=== PATIENT | male | born 1975 | race Caucasian/White ===

== ENCOUNTER 2016-11-27 18:24 | Inpatient (IN) | payer OTHER ==
--- NOTE | ~2016-11-27 | CN ---
Consultation Report [facility] [address] [place]. [address] NAME: DANYEL HERNADEZ : 71 STATUS : ADM IN PAT#: [id number] AGE: 41 ADM/REG DATE : 11/27/16 MR#: [id number] REPORT SERV DATE: 12/03/16 DICTATED BY: MARY MOORE DATE: 12/03/16 REPORT STATUS : Draft TRANSCRIBED BY: MODL DATE: 12/03/16 CONSULT NOTE DATE OF CONSULTATION: 12/03/2016 REASON FOR CONSULTATION: Acute hypoxic respiratory failure. HISTORY OF PRESENT ILLNESS: The patient is a 41-year-old gentleman with a past medical history of tobacco abuse, uncontrolled hypertension as well as hyperlipidemia, who initially presented to the hospital back on the 27 of November with 2 weeks of intermittent chest pain. He had an abnormal stress test at that time and underwent coronary angiography by Dr. Quintero which showed multivessel coronary disease with 75% stenosis to the left main, 75% stenosis to the proximal RCA, and 50% stenosis to the mid RCA. Ejection fraction at that time was about 55%. The valves were normal. The patient then underwent coronary artery bypass grafting x3 on December 01, 2016, by Dr. Gomes. He was extubated postoperatively and surgery was uncomplicated. Since extubation, the patient has had increasing oxygen requirements this morning, his hypoxia progressed to the point where he is now requiring 100% Vapotherm at 40 L high flow to maintain saturations in the high 80s to low 90s. We are consulted for assistance and management of his hypoxic respiratory failure. In talking with the patient, he does have a significant tobacco use history. He has smoked about 30+ pack years. He says he has never been formally diagnosed with COPD though he does state that he uses home inhalers. He denies any history of sleep apnea. The patient is coughing but unable to produce any sputum. No real significant fevers since the surgery. The patient does endorse some shortness of breath. He denies any significant chest pain. PAST MEDICAL HISTORY: 1. Hypertension. 2. Hyperlipidemia. 3. Tobacco abuse. HOME MEDICATIONS: See medication reconciliation form. ALLERGIES: INCLUDE PENICILLIN, OXYCODONE, AND CLINDAMYCIN. SOCIAL HISTORY: 30+ pack-year history of smoking. Occasional marijuana use. Socially alcohol use. No IV drug abuse. FAMILY HISTORY: Reviewed and positive for coronary disease in his mother. REVIEW OF SYSTEMS: A 10-point review of systems negative except as mentioned in the HPI. PHYSICAL EXAMINATION: VITAL SIGNS: Temperature 99.9, heart rate 107, respiratory rate 23, blood pressure 131/82, Consultation Report [facility] [address] [place]. [address] NAME: DANYEL HERNADEZ : 71 STATUS : ADM IN PAT#: [id number] AGE: 41 ADM/REG DATE : 11/27/16 MR#: [id number] REPORT SERV DATE: 12/03/16 DICTATED BY: MARY MOORE DATE: 12/03/16 REPORT STATUS : Draft TRANSCRIBED BY: MODL DATE: 12/03/16 and saturations 89% on 100% Vapotherm with 40 L/minute flow. GENERAL: No acute distress. HEENT: Pupils equal, round, and reactive to light. Extraocular movements intact. Oropharynx clear. Moist mucous membranes. NECK: Supple. Nontender. No lymphadenopathy. No thyromegaly. No jugular venous distention. LUNGS: Coarse breath sounds with decreased breath sounds bilaterally. CARDIOVASCULAR: Tachycardic. No murmurs, rubs, or gallops. ABDOMEN: Soft, nontender, nondistended. Positive bowel sounds. No hepatosplenomegaly. EXTREMITIES: No cyanosis, clubbing, or edema. NEUROLOGIC: Alert and oriented x3. Cranial nerves intact. PSYCHIATRIC: Mood appropriate. LABS AND IMAGING: Blood gas with a pH of 7.44, pCO2 of 37, and PO2 of 60 on 100% FiO2. Metabolic profile remarkable for sodium of 134, BUN of 27, and creatinine of 1.1. CBC with a white count 18,000 with 77% neutrophils, 13% lymphocytes. Chest x-ray shows low lung volumes with bibasilar atelectasis, left greater than right. ASSESSMENT AND PLAN: The patient is a 41-year-old gentleman with a past medical history of tobacco abuse, hyperlipidemia, and hypertension who is now postop day #2 from coronary artery bypass grafting x3, now with acute postoperative hypoxic respiratory failure. In reviewing his labs and imaging and examining him, I feel like most likely his hypoxic respiratory failure is secondary to postoperative atelectasis with severe shunting. Currently the patient is requiring 100% Vapotherm with 40 L flow just to maintain saturations in the high 80s to low 90s. For now, we will continue with aggressive pulmonary toilet including incentive spirometry, EzPAP, good pain control, and ambulating the patient as much as tolerated. The patient has agreed to continue to work with respiratory therapy in these efforts. If these efforts are not successful, then we would likely progress to BiPAP next to assist with his atelectasis and would have a very low threshold to go ahead and intubate the patient. Place him back on mechanical ventilation. Given history of tobacco use, we will also place him on bronchodilator protocol. He denies a formal history of COPD though I suspect he does have a component of this. The patient's respiratory status is very tenuous and has a high likelihood of sudden clinically significant or life- threatening deterioration in his condition. We will continue to follow the patient closely with you. Please call with questions. I appreciate the consult. Total critical care time spent on this patient was 40 minutes. LITA/AHMET Mary Moore MD / [id number] Consultation Report [address] [address] NAME: DANYEL HERNADEZ : 71 STATUS : ADM IN [facility]#: [id number] AGE: 41 ADM/REG DATE : 11/27/16 MR#: [id number] REPORT SERV DATE: 12/03/16 DICTATED BY: MARY MOORE DATE: 12/03/16 REPORT STATUS : Draft TRANSCRIBED BY: AHMET DATE: 12/03/16 CC: Louis Quintero M.D.
--- NOTE | ~2016-11-27 | HP ---
History And Physical [place] [id number] [facility] [place]. [address] NAME: DANYEL HERNADEZ : 71 STATUS : ADM IN PAT#: [id number] AGE: 41 ADM/REG DATE : 11/27/16 MR#: [id number] REPORT SERV DATE: 11/28/16 DICTATED BY: JING QUINTERO DATE: 11/28/16 REPORT STATUS : Draft TRANSCRIBED BY: MODPaul DATE: 11/28/16 DATE OF ADMISSION: 11/27/2016 CHIEF COMPLAINT: Chest pain. HISTORY OF PRESENT ILLNESS: The patient is a 41-year-old male with reported history of poorly controlled hypertension, who presented to the emergency department at the [facility] with complaints of two weeks of intermittent chest discomfort. Reportedly, he had a recent nuclear perfusion stress test which was abnormal and was instructed to report to the emergency department for any recurrent pain. On the day of admission, developed recurrent chest pain. He came to the emergency department for evaluation. By the time of arrival in the emergency department, the patient was pain-free. The patient describes pressure-like sensation in the central chest with radiation to the left arm, exacerbated with exertion, and relieved with rest. No prolonged chest pain symptoms. FAMILY HISTORY: Mother with myocardial infarction at age 30 with multiple stents since that time. Mother remains alive and well. SOCIAL HISTORY: Tobacco user for the last 30 years smoking on an average one pack of cigarettes per day. Reports social alcohol use. Reports occasional listed drug use with marijuana. ALLERGIES: 1. ALTHOUGH, THE PATIENT REPORTS AN ALLERGY TO PENICILLIN. HE REPORTS THAT THIS OCCURRED IN CHILDHOOD. HE REPORTS THAT SINCE THAT TIME HE HAS TAKEN AMOXICILLIN MULTIPLE TIMES WITHOUT SIDE EFFECTS OR ALLERGIC REACTION. 2. OXYCODONE WITH NAUSEA AND RASH. 3. CLINDAMYCIN WITH RASH. HOME MEDICATIONS: 1. Gemfibrozil 600 mg b.i.d. the patient has been intolerant to the same. 2. Ibuprofen 800 mg p.o. p.r.n. musculoskeletal pain. 3. Losartan/hydrochlorothiazide 50/12.5 mg p.o. b.i.d. 4. Multivitamin with minerals. 5. Naprosyn p.r.n. REVIEW OF SYSTEMS: Review of systems negative for all organ systems except per the history of present illness. PHYSICAL EXAMINATION: VITAL SIGNS: Blood pressure 157/91, pulse ranging from 68 to 81, respirations 12 and unlabored, and saturating 98% on room air. Weight 110 pounds. GENERAL: This is an obese middle-aged male, in no acute distress. HEENT: Normal. NECK: Supple, no JVD or bruit, normal carotid upstroke bilaterally, no thyromegaly. LUNGS: Clear to auscultation and percussion. No wheezes, rales or rhonchi. No use of History And Physical [address] [address] NAME: DANYEL HERNADEZ : 71 STATUS : ADM IN [facility]#: [id number] AGE: 41 ADM/REG DATE : 11/27/16 MR#: [id number] REPORT SERV DATE: 11/28/16 DICTATED BY: JING QUINTERO DATE: 11/28/16 REPORT STATUS : Draft TRANSCRIBED BY: AHMET DATE: 11/28/16 accessory muscles. CARDIOLOGY: Regular rhythm, normal S1, S2, no thrill, no murmur, rubs or gallops, normal PMI. ABDOMEN: Obese. Bowel sounds positive, soft, nontender. No masses or aortic bruits. No hepatosplenomegaly or hepatojugular reflux. EXTREMITIES: No edema. Normal pulses. No clubbing or cyanosis. SKIN: Warm and dry, no significant rash. NEUROLOGIC: Alert and oriented x 3. Appropriate mood. LABORATORY DATA: WBC is 7.7, hemoglobin 15.5, hematocrit 44.9, and platelets 131,000. Sodium 143, potassium 3.4 - repleted since admission, chloride 102, CO2 29, BUN 16, creatinine 0.96, and glucose 170. DIAGNOSTIC DATA: Portable chest x-ray unremarkable. EKG: Sinus rhythm and normal EKG. Nuclear perfusion stress test 11/25/2016: Evidence of inferior infarction with mild inferoapical sandy-infarct ischemia. Ejection fraction 55% on gated images. Intermediate risk stress test. IMPRESSION AND PLAN: Unstable angina-admitted with intravenous heparin and nitroglycerin paste. We will add low-dose beta-alta as well as aspirin. Given abnormal nuclear perfusion stress test and the patient's presentation, we have recommended cardiac catheterization with intervention as indicated. The risks, benefits, and alternatives have been discussed with the patient. The patient's questions have been answered. The potential complications including but not limited to, , stroke, myocardial infarction, renal failure, life-threatening allergic reaction, life-threatening arrhythmia, and vascular cardiac injury requiring emergent surgery have been discussed with the patient. The patient's questions have been answered. The patient voices understanding of potential risks and desires to proceed. Schedule the patient for the same on Wednesday. CSL/MODL Louis Quintero M.D. / [id number] CC: Louis Quintero M.D. UNKNOWN
--- NOTE | ~2016-11-27 | OP ---
Record Of Operation [place] [address] [facility] [place]. [address] NAME: KARRI OCAMPO : 71 STATUS : ADM IN PAT#: [id number] AGE: 41 ADM/REG DATE : 11/27/16 MR#: [id number] REPORT SERV DATE: 12/01/16 DICTATED BY: ESTEBAN OMALLEY DATE: 12/01/16 REPORT STATUS : Draft TRANSCRIBED BY: MODL DATE: 12/01/16 DATE OF PROCEDURE: 12/01/2016 OCEAN RESCUE LIEUTENANT: Jenna Alexis. ANESTHESIOLOGIST: Karri Best MD PREOPERATIVE DIAGNOSES: 1. Unstable angina. 2. Three-vessel coronary artery disease. 3. Hypertension. 4. Hyperlipidemia. 5. Tobacco abuse. 6. Morbid obesity. POSTOPERATIVE DIAGNOSES: 1. Unstable angina. 2. Three-vessel coronary artery disease. 3. Hypertension. 4. Hyperlipidemia. 5. Tobacco abuse. 6. Morbid obesity. OPERATION/PROCEDURE PERFORMED: 1. Median sternotomy. 2. Extracorporeal circulation. 3. Urgent coronary artery bypass grafting x3, left internal mammary artery and left anterior descending, reverse greater saphenous vein graft to obtuse marginal #1, reverse greater saphenous vein graft to distal right coronary artery. 4. ARTIE. 5. Endoscopic vein harvest of the right leg. 6. Rigid external fixation of the sternum with SternaLock Monster system. 7. Prevena dressing placement. COMPLICATIONS: None. TUBES AND DRAINS: A 24-Gabonese Timothy to the left pleural space, a 32-Gabonese anterior mediastinal chest tube, atrial and ventricular pacing wires were placed. POSTOPERATIVE CONDITION: To CVICU in critical, stable condition. The patient was weaned from cardiopulmonary bypass with no inotropic support. Total cross-clamp time was 58 minutes. Total cardiopulmonary bypass time was 84 minutes. INTRAOPERATIVE FINDINGS: The vein was 3 to 4 mm, normal thickness, good quality vein, a little on the small side. Left internal mammary artery was 2.5 mm. There were diffusely diseased targets. Transesophageal echo showed no MR, no AI, no with normal EF. Record Of Operation [place] [id number] [facility] [place]. [address] NAME: KARRI OCAMPO : 71 STATUS : ADM IN PAT#: [id number] AGE: 41 ADM/REG DATE : 11/27/16 MR#: [id number] REPORT SERV DATE: 12/01/16 DICTATED BY: ESTEBAN OMALLEY DATE: 12/01/16 REPORT STATUS : Draft TRANSCRIBED BY: AHMET DATE: 12/01/16 Postoperatively, there was preserved wall motion. DETAILS OF CARDIOPULMONARY BYPASS GRAFTIN. Graft #1, left internal mammary to left anterior descending, this is a 1.75 mm diffusely diseased target. 2. Graft #2, reverse greater saphenous vein graft to obtuse marginal #1, this was a 1.75 mm target with diffuse disease. 3. Reverse greater saphenous vein graft to distal RCA, this was a 2 mm target, this was a diffusely diseased thickened artery. Excellent Doppler signals, both pre and post protamine for all three grafts. DETAILS OF STERNAL PLATING: The [employer] Monster system was used. The sternum was sized to 14 mm screws. Two X plates were placed on the body of the sternum between the sternal wires and one 100-degree plate was placed on the manubrium. Total of 20 screws were used. INDICATIONS FOR PROCEDURE: Mr. Ocampo is a 41-year-old gentleman with a two-week history of rapidly progressive angina who was admitted and underwent coronary catheterization given his comorbidities of morbid obesity, tobacco abuse, hypertension, hyperlipidemia, and strong early coronary history on his maternal side. Coronary catheterization revealed normal LV function, no MR, no AI, no , and 75% left main with 75% distal RCA. Risks, benefits, and alternatives were discussed including but not limited to, bleeding, infection, stroke, , heart attack, need for future operations. All questions were answered. STS risks were discussed with the patient. STS mortality of 2.3% and morbidity mortality of 5% were discussed with the patient. All questions were answered. DESCRIPTION OF PROCEDURE: The patient was brought to the operating room and placed supine on the operating room table. After satisfactory induction of general endotracheal anesthesia, he was prepped and draped in the usual sterile fashion. Working simultaneously, endoscopic vein harvest was performed from the right leg while a median sternotomy was performed. Skin and subcutaneous tissues were divided. Clavipectoral fascia was divided. The sternum was divided in the midline. Sternal retractor was placed. Thymic tissue was divided in the midline. The pericardium was divided in the midline. The targets were inspected. Targets were felt to be appropriate for bypass. The Rultract retractor was placed. The internal mammary artery on the left side was harvested in a pedicle fashion from its takeoff under the subclavian vein at the bifurcation of the diaphragm. Systemic heparinization was achieved. After three minutes, the pedicle was clipped and divided at the bifurcation. Hemostasis was obtained. A 24-Gabonese Timothy was placed in the left pleural space and exteriorized. The Rultract retractor was removed. The sternal retractor was placed. The pericardial well was created. Ascending aorta was cannulated high on the ascending aorta at the base of the innominate artery. Dual stage venous cannula was placed. Antegrade root vent cardioplegia tack was placed. The conduit was inspected and prepared for bypass. The internal mammary artery was brought through a wide V in the pericardium and prepared for bypass. Cardiopulmonary bypass was initiated. After documentation of an adequate ACT, the targets were again inspected. The cross-clamp was brought up. The heart was arrested with cold antegrade cardioplegia switching to intermittent aliquots of cold antegrade cardioplegia for 15 to 20 minutes throughout the remainder of the cross clamp. The two distal vein grafts were performed. The distal RCA was deep in the epicardial fat in the AV Record Of Operation [address] [place]. [address] NAME: KARRI OCAMPO : 71 STATUS : [facility]M [facility]#: [id number] AGE: 41 ADM/REG DATE : 11/27/16 MR#: [id number] REPORT SERV DATE: 12/01/16 DICTATED BY: ESTEBAN OMALLEY DATE: 12/01/16 REPORT STATUS : Draft TRANSCRIBED BY: AHMET DATE: 12/01/16 groove, this was dissected out. An anterior arteriotomy was performed, enlarged with a coronary scissors and a running continuous anastomosis was performed between reverse greater saphenous vein graft to the distal RCA using 8-0 Surgipro. Attention was then turned to the obtuse marginal #1, this was a 1.75 mm target and was opened anteriorly and a running continuous anastomosis was performed between this and a reverse greater saphenous vein. The veins were reversed, measured, cut to length and spatulated. The ascending aorta had two aortotomies performed, enlarged with 4.5 mm punch, and running continuous anastomoses were performed using 6-0 Prolene. Vein markers were placed. Attention was turned to the LAD. The MORA was brought down through a wide V in the pericardium. The LAD was opened on its anterior surface. There was posterior plaquing apparently throughout the artery. I opened it and what appeared to be a nondisease soft spot from the anterior portion. Arteriotomy was enlarged. The graft was cut to length, spatulated, and a running continuous anastomosis was performed using 8-0 Surgipro. The bulldog was removed. There was excellent flow in the graft and distal and proximal to the anastomosis. The pedicle was attached to the epicardium in two places using 6-0 Prolene and the graft. Vein grafts were de-aired and the cross-clamp was removed. The patient returned to normal sinus rhythm and was able to be weaned from cardiopulmonary bypass without incident. Protamine was administered. The patient was decannulated. All cannulation sites were oversewn with 4-0 Prolene. Hemostasis was obtained. The pericardium was loosely reapproximated over the ascending aorta and the right ventricle. A 32-Gabonese chest tube was placed beneath the sternum. The sternum was then reapproximated using stainless steel sternal wires. After closing the sternum, the SternaLock Monster system was used. Fascial flaps were raised to the edge of the sternum. The sternum was then sized to 14 mm screws. Two X plates were placed on the body of the sternum between the sternal wires and one 100-degree plate was placed on the body of the manubrium. The clavipectoral fascia was then closed over the sternum using running #1 Stratafix, subcutaneous tissues closed using running #1 Stratafix, the skin closed with 2-0 Quill, Prevena dressing was placed. The patient was transferred to CVICU in critical, stable condition. WMC/MODL Esteban Omalley MD / [id number] CC: Esteban Omalley MD
--- NOTE | ~2016-11-27 | CN ---
Consultation Report [facility] [address] [place]. [address] NAME: DANYEL OCAMPO : 71 STATUS : ADM IN PAT#: [id number] AGE: 41 ADM/REG DATE : 11/27/16 MR#: [id number] REPORT SERV DATE: 12/01/16 DICTATED BY: CARIDAD DIMAS DATE: 12/01/16 REPORT STATUS : Draft TRANSCRIBED BY: MODL DATE: 12/01/16 CONSULTATION DATE OF CONSULTATION: 12/01/2016 REASON FOR CONSULTATION: Multivessel coronary artery disease. HISTORY OF PRESENT ILLNESS: This is a pleasant 41-year-old, male with a history of poorly controlled high blood pressure and hyperlipidemia as well as tobacco abuse. He presented to the emergency room at [facility] on 11/27/2016 with two weeks of chest pain, abnormal stress test. In the emergency room, his chest pain did resolve without any intervention and his cardiac workup including enzymes and EKG were negative. The patient was transferred to [facility] as his chest pain continued to persist with activity. He underwent arteriogram yesterday and was found to have multivessel coronary artery disease including a 75% stenosis to his left main coronary artery and 75% stenosis to the proximal RCA with 50% stenosis to the mid RCA. There was no mention of valvular abnormalities and transthoracic echo on 11/30/2016 showed an ejection fraction of around 55%. Currently, the patient is resting with no complaints of chest pain or shortness of breath. His girlfriend is with him at the bedside. He is a little anxious regarding the recent news, but otherwise his exam is negative. PAST MEDICAL HISTORY: Poorly controlled high blood pressure and hyperlipidemia. FAMILY HISTORY: He has a history of coronary artery disease on his maternal side. PAST SURGICAL HISTORY: No major surgeries in the past. SOCIAL HISTORY: One [id number] smoker x30 years. Occasional use of marijuana. He socially drinks alcohol. 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 He is single, but has a girlfriend. ALLERGIES: HE REPORTS A PRIOR ALLERGY A CHILD TO PENICILLIN, BUT SAYS THAT HE HAS TAKEN AMOXICILLIN SEVERAL TIMES WITHOUT ANY ALLERGIC REACTION. ALSO ALLERGIC TO OXYCODONE AND CLINDAMYCIN. HOME MEDICATIONS: Gemfibrozil 600 mg p.o. b.i.d., ibuprofen 800 mg p.r.n., losartan/hydrochlorothiazide 50/12.5 mg p.o. b.i.d., multivitamin daily, and Naprosyn as needed. REVIEW OF SYSTEMS: A 10-point review of systems was obtained and is negative other than HPI. PHYSICAL EXAMINATION: VITAL SIGNS: From today, temperature 97.5, heart rate 67, blood pressure 145/85, Consultation Report [address] [place]. [address] NAME: DANYEL OCAMPO : 71 STATUS : ADM IN PAT#: [id number] AGE: 41 ADM/REG DATE : 11/27/16 MR#: [id number] REPORT SERV DATE: 12/01/16 DICTATED BY: CARIDAD DIMAS DATE: 12/01/16 REPORT STATUS : Draft TRANSCRIBED BY: AHMET DATE: 12/01/16 respiratory rate 16, and O2 saturation 97% on room air. GENERAL: Pleasant, overweight, male. He has several tattoos, in no acute distress. PSYCH: Anxious but talkative and pleasant. NEUROLOGIC: Alert and oriented x3. Pupils are equal, round, reactive to light and accommodation. He exhibits equal strength in bilateral upper extremities and bilateral lower extremities. HEENT: Head is normocephalic and atraumatic. Sclerae clear. Nose midline with no abnormalities. Ears with no abnormalities. Dentition several missing teeth with poor dentition overall. NECK: Supple with no thyromegaly or lymphadenopathy. LUNGS: Clear to auscultation bilaterally with normal effort. CARDIAC: S1, S2 with no murmurs, rubs, or gallops. ABDOMEN: Soft, obese, and nontender with active bowel sounds. EXTREMITIES: Free of cyanosis, clubbing, or edema. White blood cell count 14.9, hemoglobin 17.1, hematocrit 47.1, platelets 260. Sodium 141, potassium 4.3, chloride 102, bicarbonate 26, BUN 19, creatinine 0.9. Glucose 115. ASSESSMENT AND PLAN: This is a 41-year-old, male, who has had a history of unstable angina for over two weeks now. This seems to be worse with any exertion. His cardiac workup was negative, but he was taken for arteriogram yesterday and found to have a 75% stenosis to his left main coronary artery and 75% proximal RCA stenosis with normal left ventricular ejection fraction as mentioned above. The patient needs 2 to 3-vessel coronary artery bypass grafting. I have discussed the risks and benefits of surgery as well as his STS risk score, his STS risk stratification for him and his particular surgery include an overall mortality of 0.3% and morbidity mortality of 5%. I have discussed these findings in relation to his need for surgery and expectations for recovery and the patient is willing to proceed. He says that he would like to proceed as soon as possible. We could arrange this afternoon. I spoke with Dr. Gomes regarding the patient and reviewed images. We will plan for surgery around noon today. We would like to thank you for the consultation. Please let us know if we can be of any further assistance in helping you take care of Mr. Jimmy Ocampo. SRIDHAR/AHMET Caridad Dimas NP / [id number] CC: Consultation Report [address] [id number] NAME: DANYEL OCAMPO : 71 STATUS : ADM IN [facility]#: [id number] AGE: 41 ADM/REG DATE : 11/27/16 MR#: [id number] REPORT SERV DATE: 12/01/16 DICTATED BY: CARIDAD DIMAS DATE: 12/01/16 REPORT STATUS : Draft TRANSCRIBED BY: AHMET DATE: 12/01/16 Louis Quintero M.D.
--- NOTE | ~2016-11-27 | DS ---
Discharge Summary [facility] [address] [place]. [address] NAME: DANYEL HERNADEZ : 71 STATUS : DIS IN PAT#: [id number] AGE: 41 ADM/REG DATE : 11/27/16 MR#: [id number] REPORT SERV DATE: 12/17/16 DICTATED BY: JING QUINTERO DATE: 12/16/16 REPORT STATUS : Draft TRANSCRIBED BY: AHMET DATE: 12/16/16 Data Collection from hospitalization DISCHARGE DIAGNOSES: 1. Unstable angina, status post coronary artery bypass grafting. 2. Hyperlipidemia. 3. Hypertension. 4. Tobacco use. 5. Dental abscesses. CONSULTATIONS: 1. Lionel Cruz NP. 2. Suman Moore MD. PROCEDURES: 1. Cardiac catheterization, 11/30/2016. 2. Median sternotomy; extracorporeal circulation; urgent coronary artery bypass grafting x3, left internal mammary artery and left anterior descending, reverse greater saphenous vein graft to obtuse marginal #1, reverse greater saphenous vein graft to distal right coronary artery; transesophageal echocardiogram; endoscopic vein harvest from the right leg; rigid external fixation of the sternum with SternaLock Monster system; Prevena dressing placement, 12/01/2016. 3. Vein mapping of the bilateral lower extremities, 12/01/2016. 4. Carotid blood flow study, 12/01/2016. DISCHARGE MEDICATIONS: Proventil two puffs via inhaler every four hours as needed, Cordarone 200 mg twice a day, Augmentin 500 mg every 8 hours, aspirin 81 mg daily, Lipitor as instructed, Lasix 40 mg daily, Prinivil 5 mg daily, Lopressor 50 mg twice a day, Centrum one tablet daily, Percocet 10/325 one tablet every four hours as needed, K-Dur 20 mEq daily, and prednisone 2.5 mg twice a day. CONDITION AT DISCHARGE: Stable. DISPOSITION: The patient was discharged home on an 1800-calorie cardiac/diabetic diet with activities as instructed. He would follow up with Lionel Cruz 12/29/[address] Louis Quintero 01/04/2017. He will follow up with Dr. Leigh Jay as instructed. He would follow up with his primary care physician 3-4 weeks following discharge and would follow up with cardiac rehab, 01/07/2017. HOSPITAL COURSE: This is a 41-year-old man who has poorly controlled hypertension, who presented to the emergency department at the [facility] complaining of a two- week history of intermittent chest tube discomfort. Reportedly, he had a recent nuclear perfusion stress test, which was abnormal and he was instructed to report to the emergency department for any recurrent pain. On the day of admission, he developed recurrent chest pain and came to the emergency department. By the time of his arrival, he was pain free. He described having pressure-like sensation in the central chest with radiation to the left arm, exacerbated with exertion and relieved with rest. He had no prolonged chest pain symptoms. He was admitted to the hospital at this time for further evaluation and Discharge Summary [address] [address] NAME: DANYEL HERNADEZ : 71 STATUS : DIS IN PAT#: [id number] AGE: 41 ADM/REG DATE : 11/27/16 MR#: [id number] REPORT SERV DATE: 12/17/16 DICTATED BY: JING QUINTERO DATE: 12/16/16 REPORT STATUS : Draft TRANSCRIBED BY: AHMET DATE: 12/16/16 treatment. Upon admission, intravenous heparin and nitroglycerin paste were provided, low-dose beta- alta as well as aspirin were added. Given the abnormal nuclear perfusion stress test and the patient's presentation, it was recommended that a cardiac catheterization with intervention be performed. The following day, he had no chest pain or dyspnea. He does have a dental infection, but no fevers or chills. He had no systemic symptoms. Augmentin was being given. On 11/30/2016, he had brief chest pain while walking in the halls the previous evening, he had none currently. His lungs were clear. Lipitor was increased. Fenofibrate was added. Hemoglobin A1c was going to be checked. White blood cell count was 14.9. The patient was taken to the cardiac lab instructor where he underwent the above-mentioned procedure by Dr. Kiet Felipe, he tolerated this well. There were no complications. On 12/01/2016, he was seen by Lionel Cruz regarding multivessel coronary artery disease. The arteriogram had revealed multivessel coronary artery disease including 75% stenosis to the left main coronary artery and 75% stenosis to the proximal RCA with 50% stenosis to the mid RCA. There was no mention of valvular abnormalities, and transthoracic echo on 11/30/2016 showed an ejection fraction around 55%. The patient was currently resting with no complaints, it was felt that he would need to undergo coronary artery bypass grafting. Vein mapping of the bilateral lower extremities was performed as well as a carotid blood flow study. The patient was taken to the operating room where he underwent the above-mentioned procedure by Dr. Esteban Gomes. He tolerated this well and there were no complications. On postop day #1, he complained of typical postop chest tube/incisional pain. He has no palpitations or shortness of breath. He was in a sinus rhythm. The patient was found to have nonobstructive left internal carotid artery stenosis - 50%-60%. On 12/03/2016, he still had some chest wall pain and dyspnea, he was on high-flow O2. He had decreased breath sounds in his bases and some rhonchi. The patient was seen by Dr. Suman Moore regarding acute hypoxic respiratory failure. He has been extubated postoperatively and his surgery had been uncomplicated. Since extubation, he had increasing oxygen requirements. His hypoxia had progressed to the point where he now required 100% Vapotherm at 40 L high-flow to maintain saturations in the high 80s to low 90s. The patient does have a significant tobacco use history. He has smoked about 30+ pack years. He said he had never been formally diagnosed with COPD, although he does state that he uses home inhalers. He denies any history of sleep apnea. He was coughing, but had no sputum production. It was felt that most likely his hypoxic respiratory failure was secondary to postoperative atelectasis with severe shunting. Aggressive pulmonary toilet would be continued including incentive spirometry, EasyPath, good pain control, and having the patient ambulate as much as tolerated. He agreed to continue working with respiratory therapy. If these efforts were not successful, then he would likely progress to BiPAP next to assist with his atelectasis, and we would have a very low threshold to go ahead and intubate the patient and place him back on mechanical ventilation. Given his history of tobacco use, we would also place him on bronchodilator protocol. The patient's respiratory status was very tenuous and he had a high likelihood of sudden clinically significant or life-threatening deterioration in his condition. The patient was felt to be at risk for atrial fibrillation/flutter, but at the current time, appeared to be in sinus tachycardia. Metoprolol was increased. His ECG revealed what appeared to be atrial flutter with 2:1 block with a rate of 150, IV amiodarone was started. Discharge Summary [facility] [address] [place]. [address] NAME: DANYEL HERNADEZ : 71 STATUS : DIS IN PAT#: [id number] AGE: 41 ADM/REG DATE : 11/27/16 MR#: [id number] REPORT SERV DATE: 12/17/16 DICTATED BY: JING QUINTERO DATE: 12/16/16 REPORT STATUS : Draft TRANSCRIBED BY: AHMET DATE: 12/16/16 On 12/05/2016, he denied any shortness of breath at rest. He was in a normal sinus rhythm, now on amiodarone. Diuresis was being performed. Steroids were being tapered. O2 was being tapered as tolerated. He was tolerating his diet. He was recovering slowly, blood pressure was controlled. The next day, his O2 requirement decreased overnight. He said he was feeling better, but was still sore, O2 was being tapered. We encouraged him to increase his activity. Steroids were being tapered. Discharge planning was performed. He continued to do well. On 12/07/2016, he was in a normal sinus rhythm. Oral Lasix continued. We were going to add lisinopril, his incisions looked okay. The patient was seen by Jaylene Darling. Chest x-ray showed improved aeration of the lungs. There was minimal bibasilar atelectasis. The patient was on oral steroid taper. Discharge instructions were given due to his improved and stable condition. He was discharged home with the above-stated instructions. Information collected by: Riri Ashby I submit the above information as my discharge summary. JADE/AHMET Louis Quintero M.D. / [id number] CC: Landon Alvarado NP Deborah B. Phong, [employer]
[~2016-11-27 18:24] MED LIST: ALEVE PM PO; CENTRUM PO; HYZAAR 50/12.51 TAB PO; IBU800 PO; LOPID6 PO
[2016-11-28 04:30] LABS: HEMATOCRIT 43.5 % (40.0-51.0); HEMOGLOBIN 15.6 g/dL (13.6-17.8); MANUAL DIFF YES %; MEAN CORPUS HGB CONC 35.9 g/dL (32.0-36.0); PLATELET COUNT 215 10/3/uL (150-400); RBC DISTRIBUTION WIDTH 12.7 % (12.0-16.0); RED CELL COUNT 4.73 10/6/uL (4.7-6.1); WHITE BLOOD CELLS 10.3 10/3/uL (4.5-10.5)
[2016-11-28 04:59] LABS: BAND NEUTROPHILS 2 %; EOSINOPHILS 1 %; LYMPHOCYTES 38 %; LYMPHOCYTES ABSOLUTE (CALC) 3.91 10/3/uL (0.67-4.30); MONOCYTES 2 %; MONOCYTES ABSOLUTE (CALC) 0.21 10/3/uL (0.21-1.20); NEUTROPHILS ABSOLUTE (CALC) 6.08 10/3/uL (2.02-8.40); PLATELET ESTIMATE ADQ (ADEQUATE); SEGMENTED NEUTROPHIL (0) 57 %; TOTAL NUCLEATED CELLS 100
[2016-11-28 05:00] LABS: RBC MORPHOLOGY NORM (NORMAL)
[2016-11-30 01:45] LABS: HEMATOCRIT 47.1 % (40.0-51.0); HEMOGLOBIN 17.1 g/dL (13.6-17.8); MEAN CORPUS HGB CONC 36.3 g/dL (32.0-36.0); MEAN CORPUSCULAR HEMOGLOB 32.6 pg (26.0-34.0); MEAN CORPUSCULAR VOLUME 89.7 fL (80-100); MEAN PLATELET VOLUME 10.1 fL (9.2-13.0); PLATELET COUNT 260 10/3/uL (150-400); RBC DISTRIBUTION WIDTH 12.7 % (12.0-16.0); RED CELL COUNT 5.25 10/6/uL (4.7-6.1)
[2016-11-30 01:46] LABS: MANUAL DIFF YES %; WHITE BLOOD CELLS 14.9 10/3/uL (4.5-10.5)
[2016-11-30 01:53] LABS: PROTIME (NOT ORD) 12.7 SEC (12.0-14.5)
[2016-11-30 01:54] LABS: PARTIAL THROMBO TIME 101.3 SEC (22.5-37.2)
[2016-11-30 02:03] LABS: BAND NEUTROPHILS 2 %; EOSINOPHILS 1 %; LYMPHOCYTES 34 %; LYMPHOCYTES ABSOLUTE (CALC) 5.07 10/3/uL (0.67-4.30); MONOCYTES 2 %; NEUTROPHILS ABSOLUTE (CALC) 9.39 10/3/uL (2.02-8.40); SEGMENTED NEUTROPHIL (0) 61 %; TOTAL NUCLEATED CELLS 100
[2016-11-30 02:04] LABS: EOSINOPHILS ABSOLUTE (CALC) 0.15 10/3/uL (0.0-0.53); PLATELET ESTIMATE ADQ (ADEQUATE); RBC MORPHOLOGY NORM (NORMAL)
[2016-11-30 02:06] LABS: BUN (BLOOD UREA NITROGEN) 19 MG/DL (6-23); CALCIUM, SERUM 9.3 MG/DL (8.5-10.4); CHLORIDE, SERUM 102 MMOL/L (96-112); CHOLESTEROL 292 MG/DL (< 200); CO2 (CARBON DIOXIDE) 26 MMOL/L (24-34); CREATININE 0.93 MG/DL (0.70-1.30); GFR AFRICAN AMERICAN 116 ML/MIN (>=60); GFR NON AFRICAN AMERICAN 100 ML/MIN (>=60); HDL CHOLESTEROL 25 MG/DL (> 39); NON-HDL CHOLESTEROL 267 MG/DL (< 160); SODIUM, SERUM 141 MMOL/L (135-148)
[2016-11-30 02:15] LABS: CHOL/HDL RATIO(NOT ORDER) 11.7 (0-5); GLUCOSE, SERUM 115 MG/DL (60-99); POTASSIUM, SERUM 4.3 MMOL/L (3.5-5.3); TRIGLYCERIDE 1208 MG/DL (< 150)
[2016-12-01 08:52] LABS: BASOPHILS 0.5 %; BASOPHILS ABSOLUTE 0.04 10/3/uL (0.0-0.16); EOSINOPHILS 3.3 %; EOSINOPHILS ABSOLUTE 0.27 10/3/uL (0.0-0.53); HEMATOCRIT 45.3 % (40.0-51.0); HEMOGLOBIN 15.9 g/dL (13.6-17.8); IMMATURE GRANULOCYTES 0.2 %; IMMATURE GRANULOCYTES ABSOLUTE 0.02 10/3/uL (0.0-0.11); LYMPHOCYTES 29.2 %; LYMPHOCYTES ABSOLUTE 2.39 10/3/uL (0.67-4.30); MEAN CORPUS HGB CONC 35.1 g/dL (32.0-36.0); MEAN CORPUSCULAR HEMOGLOB 32.1 pg (26.0-34.0); MEAN CORPUSCULAR VOLUME 91.3 fL (80-100); MEAN PLATELET VOLUME 9.8 fL (9.2-13.0); MONOCYTES 7.1 %; MONOCYTES ABSOLUTE 0.58 10/3/uL (0.21-1.20); NEUTROPHILS 59.7 %; NEUTROPHILS ABSOLUTE 4.88 10/3/uL (2.02-8.40); PLATELET COUNT 214 10/3/uL (150-400); RBC DISTRIBUTION WIDTH 12.6 % (12.0-16.0); RED CELL COUNT 4.96 10/6/uL (4.7-6.1)
[2016-12-01 08:53] LABS: MANUAL DIFF NO %; WHITE BLOOD CELLS 8.2 10/3/uL (4.5-10.5)
[2016-12-01 17:45] LABS: BE (BASE EXCESS) -3.8 MEQ/L (0 +/- 2.5); CARBOXYHEMOGLOBIN 0.1 % (0-3); HCO3 (ACTUAL BICARBONATE) 21.3 MEQ/L (23-27); HEMOBLOGIN CONTENT 13.6 G/DL (14-18); INSTRUMENT SERIAL # 11843; METHEMOGLOBIN 0.5 % (0-3); MODE SIMV; O2 CONTENT 18.9 VOL% (18-24); OPERATOR ID 18642; PCO2 (CO2 TENSION) 39 MMHG (35-45); PO2 (O2 TENSION) 140 MMHG (79-93); PRESSURE SUPPORT 0 cm.H2O; SAMPLE Arterial; TIDAL VOLUME 700 ML; pH 7.35 (7.37-7.43)
[2016-12-01 18:09] LABS: HEMOGLOBIN 12.8 g/dL (13.6-17.8); PLATELET COUNT 162 10/3/uL (150-400)
[2016-12-01 18:11] LABS: HEMATOCRIT 36.5 % (40.0-51.0)
[2016-12-01 18:16] LABS: BUN (BLOOD UREA NITROGEN) 16 MG/DL (6-23); CALCIUM, SERUM 9.4 MG/DL (8.5-10.4); CHLORIDE, SERUM 107 MMOL/L (96-112); CO2 (CARBON DIOXIDE) 26 MMOL/L (24-34); CREATININE 1.28 MG/DL (0.70-1.30); GFR AFRICAN AMERICAN 79 ML/MIN (>=60); GFR NON AFRICAN AMERICAN 68 ML/MIN (>=60); GLUCOSE, SERUM 107 MG/DL (60-99); POTASSIUM, SERUM 3.8 MMOL/L (3.5-5.3); SODIUM, SERUM 139 MMOL/L (135-148)
[2016-12-01 18:20] LABS: FIBRINOGEN 286 MG/DL (230-462); INTERNATIONAL NORMAL RATI 1.2 UNITS (-); PARTIAL THROMBO TIME 28.6 SEC (22.5-37.2)
[2016-12-01 18:22] LABS: PROTIME (NOT ORD) 14.8 SEC (12.0-14.5)
[2016-12-01 21:39] LABS: BE (BASE EXCESS) -2.4 MEQ/L (0 +/- 2.5); CARBOXYHEMOGLOBIN 0.2 % (0-3); DEVICE NC; HCO3 (ACTUAL BICARBONATE) 22.8 MEQ/L (23-27); HEMOBLOGIN CONTENT 14.3 G/DL (14-18); INSTRUMENT SERIAL # 11843; METHEMOGLOBIN 0.4 % (0-3); O2 CONTENT 19.2 VOL% (18-24); OPERATOR ID 13415; PCO2 (CO2 TENSION) 41 MMHG (35-45); PO2 (O2 TENSION) 86 MMHG (79-93); SAMPLE Arterial; pH 7.37 (7.37-7.43)
[2016-12-02 03:34] LABS: BASOPHILS 0.1 %; BASOPHILS ABSOLUTE 0.01 10/3/uL (0.0-0.16); EOSINOPHILS 0 %; HEMATOCRIT 36.9 % (40.0-51.0); HEMOGLOBIN 12.7 g/dL (13.6-17.8); IMMATURE GRANULOCYTES 0.3 %; IMMATURE GRANULOCYTES ABSOLUTE 0.06 10/3/uL (0.0-0.11); LYMPHOCYTES 5.9 %; LYMPHOCYTES ABSOLUTE 1.09 10/3/uL (0.67-4.30); MEAN CORPUS HGB CONC 34.4 g/dL (32.0-36.0); MEAN CORPUSCULAR HEMOGLOB 31.8 pg (26.0-34.0); MEAN CORPUSCULAR VOLUME 92.3 fL (80-100); MONOCYTES 4.6 %; MONOCYTES ABSOLUTE 0.85 10/3/uL (0.21-1.20); NEUTROPHILS 89.1 %; NEUTROPHILS ABSOLUTE 16.38 10/3/uL (2.02-8.40); PLATELET COUNT 179 10/3/uL (150-400); RBC DISTRIBUTION WIDTH 12.5 % (12.0-16.0)
[2016-12-02 03:35] LABS: MANUAL DIFF NO %; WHITE BLOOD CELLS 18.4 10/3/uL (4.5-10.5)
[2016-12-02 03:47] LABS: BUN (BLOOD UREA NITROGEN) 20 MG/DL (6-23); CALCIUM, SERUM 8.9 MG/DL (8.5-10.4); CHLORIDE, SERUM 107 MMOL/L (96-112); CO2 (CARBON DIOXIDE) 27 MMOL/L (24-34); CREATININE 0.89 MG/DL (0.70-1.30); GFR AFRICAN AMERICAN 121 ML/MIN (>=60); GFR NON AFRICAN AMERICAN 105 ML/MIN (>=60); GLUCOSE, SERUM 138 MG/DL (60-99); POTASSIUM, SERUM 4.4 MMOL/L (3.5-5.3); SODIUM, SERUM 140 MMOL/L (135-148)
[2016-12-02 17:34] LABS: HEMATOCRIT 39.1 % (40.0-51.0); HEMOGLOBIN 13.3 g/dL (13.6-17.8)
[2016-12-03 03:20] LABS: BASOPHILS 0.1 %; BASOPHILS ABSOLUTE 0.02 10/3/uL (0.0-0.16); EOSINOPHILS 0.1 %; EOSINOPHILS ABSOLUTE 0.01 10/3/uL (0.0-0.53); HEMOGLOBIN 11.6 g/dL (13.6-17.8); IMMATURE GRANULOCYTES 0.3 %; IMMATURE GRANULOCYTES ABSOLUTE 0.06 10/3/uL (0.0-0.11); LYMPHOCYTES ABSOLUTE 2.34 10/3/uL (0.67-4.30); MEAN CORPUS HGB CONC 34.6 g/dL (32.0-36.0); MEAN CORPUSCULAR HEMOGLOB 32.1 pg (26.0-34.0); MEAN CORPUSCULAR VOLUME 92.8 fL (80-100); MEAN PLATELET VOLUME 10.4 fL (9.2-13.0); MONOCYTES 8.8 %; MONOCYTES ABSOLUTE 1.59 10/3/uL (0.21-1.20); NEUTROPHILS 77.7 %; PLATELET COUNT 156 10/3/uL (150-400); RED CELL COUNT 3.61 10/6/uL (4.7-6.1)
[2016-12-03 03:21] LABS: HEMATOCRIT 33.5 % (40.0-51.0); MANUAL DIFF NO %
[2016-12-03 03:33] LABS: CALCIUM, SERUM 8.9 MG/DL (8.5-10.4); CHLORIDE, SERUM 99 MMOL/L (96-112); CO2 (CARBON DIOXIDE) 27 MMOL/L (24-34); GFR AFRICAN AMERICAN 95 ML/MIN (>=60); GFR NON AFRICAN AMERICAN 82 ML/MIN (>=60); GLUCOSE, SERUM 132 MG/DL (60-99); POTASSIUM, SERUM 4.1 MMOL/L (3.5-5.3); SODIUM, SERUM 134 MMOL/L (135-148)
[2016-12-03 03:36] LABS: BUN (BLOOD UREA NITROGEN) 27 MG/DL (6-23)
[2016-12-03 04:40] LABS: ALLENS TEST Pos; CARBOXYHEMOGLOBIN 0.3 % (0-3); HCO3 (ACTUAL BICARBONATE) 24.9 MEQ/L (23-27); HEMOBLOGIN CONTENT 12.5 G/DL (14-18); INSTRUMENT SERIAL # 11843; METHEMOGLOBIN 0.5 % (0-3); O2 CONTENT 15.8 VOL% (18-24); OPERATOR ID 13744; PCO2 (CO2 TENSION) 37 MMHG (35-45); PO2 (O2 TENSION) 60 MMHG (79-93); SAMPLE Arterial; pH 7.44 (7.37-7.43)
[2016-12-04 03:40] LABS: BASOPHILS 0.2 %; BASOPHILS ABSOLUTE 0.03 10/3/uL (0.0-0.16); EOSINOPHILS 0.1 %; EOSINOPHILS ABSOLUTE 0.01 10/3/uL (0.0-0.53); HEMATOCRIT 31.7 % (40.0-51.0); HEMOGLOBIN 11.1 g/dL (13.6-17.8); IMMATURE GRANULOCYTES 0.4 %; IMMATURE GRANULOCYTES ABSOLUTE 0.06 10/3/uL (0.0-0.11); LYMPHOCYTES 10.4 %; LYMPHOCYTES ABSOLUTE 1.65 10/3/uL (0.67-4.30); MEAN CORPUSCULAR HEMOGLOB 32.2 pg (26.0-34.0); MEAN CORPUSCULAR VOLUME 91.9 fL (80-100); MEAN PLATELET VOLUME 10.1 fL (9.2-13.0); MONOCYTES 7.8 %; MONOCYTES ABSOLUTE 1.24 10/3/uL (0.21-1.20); NEUTROPHILS 81.1 %; NEUTROPHILS ABSOLUTE 12.86 10/3/uL (2.02-8.40); PLATELET COUNT 151 10/3/uL (150-400); RBC DISTRIBUTION WIDTH 12.8 % (12.0-16.0); RED CELL COUNT 3.45 10/6/uL (4.7-6.1); WHITE BLOOD CELLS 15.9 10/3/uL (4.5-10.5)
[2016-12-04 03:42] LABS: MANUAL DIFF NO %
[2016-12-04 03:54] LABS: CALCIUM, SERUM 8.7 MG/DL (8.5-10.4); CHLORIDE, SERUM 99 MMOL/L (96-112); CREATININE 0.76 MG/DL (0.70-1.30); GFR AFRICAN AMERICAN 130 ML/MIN (>=60); GFR NON AFRICAN AMERICAN 112 ML/MIN (>=60); GLUCOSE, SERUM 124 MG/DL (60-99); POTASSIUM, SERUM 4.4 MMOL/L (3.5-5.3); SODIUM, SERUM 135 MMOL/L (135-148)
[2016-12-04 03:55] LABS: BUN (BLOOD UREA NITROGEN) 14 MG/DL (6-23); CO2 (CARBON DIOXIDE) 32 MMOL/L (24-34)
[2016-12-05 03:48] LABS: HEMATOCRIT 29.8 % (40.0-51.0); HEMOGLOBIN 10.3 g/dL (13.6-17.8); MANUAL DIFF YES %; MEAN CORPUS HGB CONC 34.6 g/dL (32.0-36.0); MEAN CORPUSCULAR HEMOGLOB 32.2 pg (26.0-34.0); MEAN CORPUSCULAR VOLUME 93.1 fL (80-100); PLATELET COUNT 179 10/3/uL (150-400); RBC DISTRIBUTION WIDTH 12.5 % (12.0-16.0); WHITE BLOOD CELLS 14.7 10/3/uL (4.5-10.5)
[2016-12-05 04:00] LABS: BUN (BLOOD UREA NITROGEN) 16 MG/DL (6-23); CALCIUM, SERUM 8.8 MG/DL (8.5-10.4); CHLORIDE, SERUM 97 MMOL/L (96-112); CO2 (CARBON DIOXIDE) 33 MMOL/L (24-34); CREATININE 0.71 MG/DL (0.70-1.30); GFR AFRICAN AMERICAN 133 ML/MIN (>=60); GFR NON AFRICAN AMERICAN 115 ML/MIN (>=60); GLUCOSE, SERUM 121 MG/DL (60-99); PHOSPHORUS, SERUM 3.5 MG/DL (2.5-4.5); POTASSIUM, SERUM 4.6 MMOL/L (3.5-5.3); SODIUM, SERUM 135 MMOL/L (135-148)
[2016-12-06 04:04] LABS: BASOPHILS 0.2 %; BASOPHILS ABSOLUTE 0.03 10/3/uL (0.0-0.16); EOSINOPHILS 0.8 %; HEMATOCRIT 32.7 % (40.0-51.0); HEMOGLOBIN 11.1 g/dL (13.6-17.8); IMMATURE GRANULOCYTES 0.6 %; IMMATURE GRANULOCYTES ABSOLUTE 0.08 10/3/uL (0.0-0.11); LYMPHOCYTES 16.7 %; LYMPHOCYTES ABSOLUTE 2.17 10/3/uL (0.67-4.30); MEAN CORPUS HGB CONC 33.9 g/dL (32.0-36.0); MEAN CORPUSCULAR HEMOGLOB 32.1 pg (26.0-34.0); MEAN CORPUSCULAR VOLUME 94.5 fL (80-100); MEAN PLATELET VOLUME 10.1 fL (9.2-13.0); MONOCYTES 6.3 %; MONOCYTES ABSOLUTE 0.82 10/3/uL (0.21-1.20); NEUTROPHILS 75.4 %; NEUTROPHILS ABSOLUTE 9.78 10/3/uL (2.02-8.40); PLATELET COUNT 205 10/3/uL (150-400); RBC DISTRIBUTION WIDTH 12.6 % (12.0-16.0); RED CELL COUNT 3.46 10/6/uL (4.7-6.1)
[2016-12-06 04:05] LABS: MANUAL DIFF NO %
[2016-12-06 04:17] LABS: CALCIUM, SERUM 8.9 MG/DL (8.5-10.4); CHLORIDE, SERUM 95 MMOL/L (96-112); CO2 (CARBON DIOXIDE) 35 MMOL/L (24-34); CREATININE 0.75 MG/DL (0.70-1.30); GFR AFRICAN AMERICAN 130 ML/MIN (>=60); GFR NON AFRICAN AMERICAN 112 ML/MIN (>=60); GLUCOSE, SERUM 137 MG/DL (60-99); PHOSPHORUS, SERUM 3.1 MG/DL (2.5-4.5); POTASSIUM, SERUM 3.9 MMOL/L (3.5-5.3); SODIUM, SERUM 135 MMOL/L (135-148)
[2016-12-06 04:19] LABS: BUN (BLOOD UREA NITROGEN) 20 MG/DL (6-23)
[2016-12-07 04:03] LABS: BASOPHILS 0.3 %; BASOPHILS ABSOLUTE 0.05 10/3/uL (0.0-0.16); EOSINOPHILS 1.1 %; EOSINOPHILS ABSOLUTE 0.17 10/3/uL (0.0-0.53); HEMOGLOBIN 12.5 g/dL (13.6-17.8); IMMATURE GRANULOCYTES 1.5 %; IMMATURE GRANULOCYTES ABSOLUTE 0.22 10/3/uL (0.0-0.11); LYMPHOCYTES 17.6 %; LYMPHOCYTES ABSOLUTE 2.63 10/3/uL (0.67-4.30); MEAN CORPUS HGB CONC 34.5 g/dL (32.0-36.0); MEAN CORPUSCULAR HEMOGLOB 32.1 pg (26.0-34.0); MEAN CORPUSCULAR VOLUME 92.8 fL (80-100); MEAN PLATELET VOLUME 9.5 fL (9.2-13.0); MONOCYTES 9.8 %; MONOCYTES ABSOLUTE 1.46 10/3/uL (0.21-1.20); NEUTROPHILS 69.7 %; NEUTROPHILS ABSOLUTE 10.42 10/3/uL (2.02-8.40); RBC DISTRIBUTION WIDTH 12.9 % (12.0-16.0)
[2016-12-07 04:07] LABS: HEMATOCRIT 36.2 % (40.0-51.0); MANUAL DIFF NO %; PLATELET COUNT 296 10/3/uL (150-400)
[2016-12-07 04:12] LABS: BUN (BLOOD UREA NITROGEN) 17 MG/DL (6-23); CALCIUM, SERUM 9.4 MG/DL (8.5-10.4); CHLORIDE, SERUM 101 MMOL/L (96-112); CREATININE 0.75 MG/DL (0.70-1.30); GFR AFRICAN AMERICAN 130 ML/MIN (>=60); GFR NON AFRICAN AMERICAN 112 ML/MIN (>=60); POTASSIUM, SERUM 4.3 MMOL/L (3.5-5.3); SODIUM, SERUM 136 MMOL/L (135-148)
[2016-12-07 04:14] LABS: CO2 (CARBON DIOXIDE) 27 MMOL/L (24-34); GLUCOSE, SERUM 108 MG/DL (60-99)
[2016-12-07] MEDS ORDERED: ASAB PO (17:43)
[2016-12-07] MEDS ORDERED: AUG500 PO (17:44)
[2016-12-07] MEDS ORDERED: PERCOCET 10/3251 TAB PO (17:44)
[2016-12-07] MEDS ORDERED: PROVHFA INH (17:45)
[2016-12-07] MEDS ORDERED: KDUR20 PO (17:45)
[2016-12-07] MEDS ORDERED: L40 PO (17:45)
[2016-12-07] MEDS ORDERED: PRIN5 PO (17:46)
[2016-12-07] MEDS ORDERED: LIPITOR80 MG (17:46)
[2016-12-07] MEDS ORDERED: LOP50 PO (17:47)
[2016-12-07] MEDS ORDERED: PREDNISONE2.5 MG PO (17:47)
[2016-12-07] MEDS ORDERED: CORDARONE PO (17:47)
== END 2016-12-07 18:58 | disposition home or self-care (01) | DRG 233 ==
LOC: 5NO 18:24 → SDC/OF 12-01 11:54 → CVICU 12-01 16:06 → 5NO 12-06 16:40
PROVIDERS: Internal Medicine Cardiovascular Disease; Nurse Practitioner Family; Thoracic Surgery (Cardiothoracic Vascular Surgery)
PROC: 4A023N7 Measurement of Cardiac Sampling and Pressure, Left Heart, Percutaneous Approach (ICD-10-PCS; principal; 2016-11-30)
PROC: B2111ZZ Fluoroscopy of Multiple Coronary Arteries using Low Osmolar Contrast (ICD-10-PCS; 2016-11-30)
PROC: 021109W Bypass Coronary Artery, Two Arteries from Aorta with Autologous Venous Tissue, Open Approach (ICD-10-PCS; 2016-11-30)
PROC: 0210099 Bypass Coronary Artery, One Artery from Left Internal Mammary with Autologous Venous Tissue, Open Approach (ICD-10-PCS; 2016-11-30)
PROC: B2151ZZ Fluoroscopy of Left Heart using Low Osmolar Contrast (ICD-10-PCS; 2016-11-30)
PROC: 06BP0ZZ Excision of Right Saphenous Vein, Open Approach (ICD-10-PCS; 2016-12-01)
PROC: 0PH000Z Insertion of Rigid Plate Internal Fixation Device into Sternum, Open Approach (ICD-10-PCS; 2016-12-01)
PROC: 5A1221Z Performance of Cardiac Output, Continuous (ICD-10-PCS; 2016-12-01)
PROC: B246ZZ4 Ultrasonography of Right and Left Heart, Transesophageal (ICD-10-PCS; 2016-12-01)
DX: I25.110 Atherosclerotic heart disease of native coronary artery with unstable angina pectoris (principal); J95.821 Acute postprocedural respiratory failure; E66.01 Morbid (severe) obesity due to excess calories; I31.9 Disease of pericardium, unspecified; I48.91 Unspecified atrial fibrillation; I10 Essential (primary) hypertension; E78.5 Hyperlipidemia, unspecified; Z82.49 Family history of ischemic heart disease and other diseases of the circulatory system; F12.90 Cannabis use, unspecified, uncomplicated; K04.7 Periapical abscess without sinus; Z72.0 Tobacco use; G89.18 Other acute postprocedural pain; F41.9 Anxiety disorder, unspecified; J44.9 Chronic obstructive pulmonary disease, unspecified
CPT/HCPCS: 31720; 36415; 36600; 71010; 71020; 80048; 80061; 80076; 82330; 82803; 82805; 82947; 82962; 83036; 83690; 83735; 84100; 84132; 84295; 84460; 84484; 85014; 85018; 85025; 85049; 85347; 85384; 85610; 85730; 86850; 86900; 86901; 86920; 87641; 93005; 93306; 93458; 93880; 94002; 94640; 94660; 94667; 94668; 94770; 96365; 96375; 99152; 99153; 99291; A9270-GY; C1713; C1769; C1887; C1894; G0365; J0282; J0690; J1170; J1644; J1885; J1940; J2150; J2250; J2370; J2405; J2440; J2720; J2930; J3010; J3370; J3475; J3480; P9045; P9047; Q9967